=== PATIENT | female | born 2000 | race African-American/Black ===

== ENCOUNTER 2019-03-15 22:16 | Emergency (ER) | payer MEDICAID, OTHER ==
[~2019-03-15] VITALS: Ht 175.3 cm; Wt 81.8 kg
[~2019-03-15 22:16] MED LIST: ALBU8.5H3 IH
[2019-03-15 23:25] VITALS: BP 145/90
== END 2019-03-15 23:30 | disposition left against medical advice (07) ==
LOC: EMS 22:17
DX: I51.9 Heart disease, unspecified (principal); Z53.21 Procedure and treatment not carried out due to patient leaving prior to being seen by health care provider
CPT/HCPCS: 93005

== ENCOUNTER 2019-04-28 21:55 | Emergency (ER) | payer MEDICAID | END 2019-04-28 22:41 | disposition left against medical advice (07) | LOC: EMS 21:56 | DX: Z02.83 Encounter for blood-alcohol and blood-drug test (principal); Z53.21 Procedure and treatment not carried out due to patient leaving prior to being seen by health care provider ==

== ENCOUNTER 2019-04-28 22:52 | Emergency (ER) | payer MEDICAID ==
[~2019-04-28] VITALS: Ht 177.8 cm; Wt 65.9 kg
[2019-04-29 00:06] LABS: AMPHET/METH SCREEN,URINE POSITIVE (NEGATIVE); BARBITURATE SCREEN, URINE NEGATIVE (NEGATIVE); BENZODIAZEPINES SCREEN,URINE NEGATIVE (NEGATIVE); CANNABINOID SCREEN,URINE NEGATIVE (NEGATIVE); COCAINE SCREEN,URINE NEGATIVE (NEGATIVE); METHADONE SCREEN, URINE NEGATIVE (NEGATIVE); OPIATE SCREEN,URINE NEGATIVE (NEGATIVE)
[2019-04-29 00:10] LABS: PHENCYCLIDINE SCREEN,URINE NEGATIVE (NEGATIVE)
[2019-04-29 00:41] LABS: APPEARANCE,URINE CLOUDY (CLEAR); GLUCOSE, URINE (UA) NEGATIVE (NEGATIVE); KETONES,URINE TRACE mg/dL (NEGATIVE); LEUKOCYTE ESTERASE ,URINE SMALL (NEGATIVE); NITRATE,URINE POSITIVE (NEGATIVE); OCCULT BLOOD,URINE NEGATIVE (NEGATIVE); PH,URINE 5.5 (5.0-8.0); PROTEIN,URINE NEGATIVE (NEGATIVE)
[2019-04-29 00:43] LABS: BILIRUBIN,URINE PRELIM. POSITIVE (NEGATIVE)
[2019-04-29 00:47] LABS: BACTERIA,URINE Many /HPF (None Seen); RBC,URINE 0-2 /HPF (0-2); SQUAMOUS EPITHELIAL CELL,UR Few /LPF (None Seen)
[2019-04-29 01:03] VITALS: BP 119/74
== END 2019-04-29 01:08 | disposition home or self-care (01) ==
LOC: EMS 22:53
DX: N39.0 Urinary tract infection, site not specified (principal); F15.10 Other stimulant abuse, uncomplicated; J45.909 Unspecified asthma, uncomplicated; F12.90 Cannabis use, unspecified, uncomplicated
CPT/HCPCS: 87086

== ENCOUNTER 2019-05-11 17:52 | Emergency (ER) | payer MEDICAID ==
[~2019-05-11] VITALS: Ht 177.8 cm; Wt 77.3 kg
[2019-05-11 19:59] VITALS: BP 140/80
== END 2019-05-11 20:10 | disposition left against medical advice (07) ==
LOC: EMS 17:53
DX: F29 Unspecified psychosis not due to a substance or known physiological condition (principal); Z53.21 Procedure and treatment not carried out due to patient leaving prior to being seen by health care provider

== ENCOUNTER 2019-10-16 23:36 | Emergency (ER) | payer MEDICAID ==
[~2019-10-16] VITALS: Ht 177.8 cm; Wt 81.8 kg
[2019-10-17] MEDS ORDERED: KETOROLAC TROMETHAMINE 60 MG/2 ML VIAL IM ONE (00:15)
[2019-10-17 01:29] VITALS: BP 127/68
== END 2019-10-17 01:47 | disposition home or self-care (01) ==
LOC: EMS 23:40
DX: S93.402A Sprain of unspecified ligament of left ankle, initial encounter (principal); J45.909 Unspecified asthma, uncomplicated; F17.210 Nicotine dependence, cigarettes, uncomplicated; F12.90 Cannabis use, unspecified, uncomplicated; X58.XXXA Exposure to other specified factors, initial encounter; Y93.89 Activity, other specified; Y92.89 Other specified places as the place of occurrence of the external cause; Y99.8 Other external cause status
CPT/HCPCS: 73610; 99283; J1885

== ENCOUNTER 2019-10-17 17:48 | Emergency (ER) | payer MEDICAID ==
[~2019-10-17] VITALS: Ht 175.3 cm; Wt 84.1 kg
[2019-10-17 17:49] VITALS: BP 138/77
== END 2019-10-17 18:09 | disposition left against medical advice (07) ==
LOC: EMS 17:50
DX: M79.606 Pain in leg, unspecified (principal); Z53.21 Procedure and treatment not carried out due to patient leaving prior to being seen by health care provider
CPT/HCPCS: 96365; 96366; 96368; 96372

== ENCOUNTER 2019-10-21 21:15 | Inpatient (IN) | payer MEDICAID ==
[~2019-10-21] VITALS: Ht 177.8 cm; Wt 83.2 kg
[2019-10-21 22:26] LABS: APPEARANCE,URINE CLOUDY (CLEAR); BILIRUBIN,URINE NEGATIVE (NEGATIVE); GLUCOSE, URINE (UA) NEGATIVE (NEGATIVE); KETONES,URINE NEGATIVE (NEGATIVE); LEUKOCYTE ESTERASE ,URINE SMALL (NEGATIVE); OCCULT BLOOD,URINE NEGATIVE (NEGATIVE); PH,URINE 6.5 (5.0-8.0); PROTEIN,URINE TRACE (NEGATIVE)
[2019-10-21 22:33] LABS: AMPHET/METH SCREEN,URINE POSITIVE (NEGATIVE); BARBITURATE SCREEN, URINE NEGATIVE (NEGATIVE); BENZODIAZEPINES SCREEN,URINE NEGATIVE (NEGATIVE); CANNABINOID SCREEN,URINE NEGATIVE (NEGATIVE); COCAINE SCREEN,URINE NEGATIVE (NEGATIVE); METHADONE SCREEN, URINE NEGATIVE (NEGATIVE); OPIATE SCREEN,URINE NEGATIVE (NEGATIVE)
[2019-10-21 22:34] LABS: PHENCYCLIDINE SCREEN,URINE NEGATIVE (NEGATIVE)
[2019-10-21 22:38] LABS: BACTERIA,URINE Many /HPF (None Seen); NITRATE,URINE POSITIVE (NEGATIVE); RBC,URINE 0-2 /HPF (0-2); SQUAMOUS EPITHELIAL CELL,UR Many /LPF (None Seen); WBC,URINE 26-50 /HPF (0-5)
[2019-10-21] MEDS ORDERED: CEPHALEXIN MONOHYDRATE 500 MG CAPSULE PO ONE (22:45)
[2019-10-21] MEDS ORDERED: ZOLPIDEM TARTRATE 10 MG TABLET PO PRN (22:45)
[2019-10-21] MEDS ORDERED: HALOPERIDOL 5 MG TABLET PO PRN (22:45)
[2019-10-21] MEDS ORDERED: LORazepam 2 MG TABLET PO PRN (22:45)
[2019-10-22 00:52] VITALS: BP 124/71
[2019-10-22 02:28] VITALS: BP 124/71
[2019-10-22 07:37] LABS: BASOPHILS % (AUTO) 0.8 % (0.0-2.0); EOSINOPHILS % (AUTO) 3.7 % (1.0-6.0); HEMATOCRIT 32.7 % (36-46); LYMPHOCYTES # (AUTO) 2.2 K/uL (1.0-4.8); MEAN CORPUSCULAR HEMOGLOBIN 29.7 pg (26.0-34.0); MEAN CORPUSCULAR HGB CONC 33.6 G/dL (31.0-37.0); MEAN CORPUSCULAR VOLUME 88 fL (80-100); MONOCYTES # (AUTO) 0.7 K/uL (0.1-1.0); MONOCYTES % (AUTO) 9.2 % (2.0-9.0); NEUTROPHILS # (AUTO) 4.1 K/uL (1.8-7.7); NEUTROPHILS % (AUTO) 56.3 % (40.0-70.0); PLATELET COUNT (AUTO) 352 K/uL (150-450); RED BLOOD CELL COUNT(AUTO) 3.71 MIL/uL (4.00-5.20); RED CELL DISTRIBUTION WIDTH 14.5 % (11.5-14.5)
[2019-10-22 08:08] LABS: ALANINE AMINOTRANSFERASE 28 U/L (12-78); ALBUMIN 3.4 g/dL (3.4-5.0); ALKALINE PHOSPHATASE 71 U/L (46-116); ANION GAP 8 mmol/L (8-16); ASPARTATE AMINOTRANSFERASE 18 U/L (15-37); BILIRUBIN,TOTAL 0.4 mg/dL (0.1-1.0); CARBON DIOXIDE 28 mmol/L (22-29); CHLORIDE 103 mmol/L (98-107); CHOLESTEROL 156 mg/dL (131-200); GLOMERULAR FILTR. RATE CALC > 60 mL/min (>60); GLUCOSE,RANDOM 92 mg/dL (70-110); HCG,QUANTITATIVE 1 mIU/mL (0-6); HDL CHOLESTEROL 77 mg/dL (40-60); LDL CHOL (CALC.) 68 mg/dL (0-130); POTASSIUM 4.2 mmol/L (3.5-5.1); SODIUM SERUM 139 mmol/L (136-145); TOTAL PROTEIN, SERUM 7.6 g/dL (6.4-8.2); TRIGLYCERIDES 55 mg/dL (15-150); UREA NITROGEN, BLOOD 8 mg/dL (7-18)
[2019-10-22 08:30] VITALS: BP 130/95
[2019-10-22] MEDS ORDERED: ALBUTEROL SULFATE HFA 90 MCG/PUFF 8 GM INHALER IH PRN (11:30)
[2019-10-22] MEDS ORDERED: BACITRACIN 28.4 GM OINTMENT TP PRN (11:30)
[2019-10-22] MEDS ORDERED: ONDANSETRON HCL 4 MG TABLET PO PRN (11:30)
[2019-10-22] MEDS ORDERED: PETROLATUM,WHITE 28 GM JELLY TP PRN (11:30)
[2019-10-22] MEDS ORDERED: DOCUSATE SODIUM 100 MG CAPSULE PO PRN (11:30)
[2019-10-22] MEDS ORDERED: LOPERAMIDE HCL 2 MG CAPSULE PO PRN (11:30)
[2019-10-22] MEDS ORDERED: OMEPRAZOLE 20 MG CAPSULE PO PRN (11:30)
[2019-10-22] MEDS ORDERED: CloNIDine HCL 0.1 MG TABLET PO PRN (11:30)
[2019-10-22] MEDS ORDERED: ACETAMINOPHEN 325 MG TABLET PO PRN (11:30)
[2019-10-22] MEDS ORDERED: BENZOCAINE/MENTHOL LOZENGE MM PRN (11:30)
[2019-10-22] MEDS ORDERED: IBUPROFEN 600 MG TABLET PO PRN (11:30)
[2019-10-22] MEDS ORDERED: MAGNESIUM HYDROXIDE SUSPENSION 30 ML UDCUP PO PRN (11:30)
[2019-10-22] MEDS ORDERED: MAG HYDROX/AL HYDROX/SIMETH ES 30 ML SUSPENSION UDCUP PO PRN (11:30)
[2019-10-22 13:56] VITALS: BP 130/95
[2019-10-22] MEDS: CEPHALEXIN MONOHYDRATE 500 MG CAPSULE PO SCH (16:06)
[2019-10-22 18:33] VITALS: BP 121/56
[2019-10-23] MEDS: CEPHALEXIN MONOHYDRATE 500 MG CAPSULE PO SCH ×2 (08:56→16:46)
[2019-10-23 09:36] VITALS: BP 122/76
[2019-10-23 17:03] VITALS: BP 120/65
[2019-10-24] MEDS: CEPHALEXIN MONOHYDRATE 500 MG CAPSULE PO SCH ×2 (08:57→16:50)
[2019-10-24 09:20] VITALS: BP 112/74
[2019-10-24 16:38] VITALS: BP 115/61
[2019-10-25 08:45] VITALS: BP 135/77
[2019-10-25] MEDS: CEPHALEXIN MONOHYDRATE 500 MG CAPSULE PO SCH ×2 (08:48→16:53)
[2019-10-25] MEDS: CITALOPRAM HYDROBROMIDE 20 MG TABLET PO SCH (12:09)
[2019-10-25 16:36] VITALS: BP 118/73
[2019-10-26] MEDS: CEPHALEXIN MONOHYDRATE 500 MG CAPSULE PO SCH ×2 (09:10→17:14)
[2019-10-26] MEDS: CITALOPRAM HYDROBROMIDE 20 MG TABLET PO SCH (09:10)
[2019-10-26 10:17] VITALS: BP 131/69
[2019-10-26 18:50] VITALS: BP 119/68
[2019-10-27] MEDS: CITALOPRAM HYDROBROMIDE 20 MG TABLET PO SCH (08:56)
[2019-10-27] MEDS: CIPROFLOXACIN HCL 250 MG TABLET PO SCH ×2 (08:57→16:13)
[2019-10-27 09:31] VITALS: BP 113/61
[2019-10-27] MEDS ORDERED: CITA-144 PO (19:38)
[2019-10-27] MEDS ORDERED: CIPR250T6 PO (19:41)
== END 2019-10-27 20:15 | disposition home or self-care (01) | DRG 885 ==
LOC: EMS 21:16 → 3EI 23:30
PROVIDERS: ADMIT Psychiatry & Neurology Psychiatry; ATTEND Psychiatry & Neurology Psychiatry
DX: F31.9 Bipolar disorder, unspecified (principal); F15.129 Other stimulant abuse with intoxication, unspecified; N39.0 Urinary tract infection, site not specified; G47.00 Insomnia, unspecified; K59.00 Constipation, unspecified; F41.9 Anxiety disorder, unspecified; F19.10 Other psychoactive substance abuse, uncomplicated; D64.9 Anemia, unspecified; J45.909 Unspecified asthma, uncomplicated; Z87.440 Personal history of urinary (tract) infections; F17.210 Nicotine dependence, cigarettes, uncomplicated; F12.10 Cannabis abuse, uncomplicated
CPT/HCPCS: 87086; G0480